=== PATIENT | female | born 1995 | race Caucasian/White ===

== ENCOUNTER 2017-05-27 17:10 | Emergency (ER) | payer OTHER ==
[~2017-05-27] VITALS: Wt 127.0 kg
[2017-05-27] MEDS ORDERED: [UNRECOGNIZED DRUG - CODE] (17:14)
[2017-05-27] MEDS ORDERED: CYCLOBENZAPRINE5 M3 PO (17:57)
== END 2017-05-27 17:41 | disposition home or self-care (01) ==
LOC: ED 17:10
DX: O26.891 Other specified pregnancy related conditions, first trimester (principal); R20.2 Paresthesia of skin; O99.331 Smoking (tobacco) complicating pregnancy, first trimester; F17.200 Nicotine dependence, unspecified, uncomplicated; Z3A.11 11 weeks gestation of pregnancy; Z79.899 Other long term (current) drug therapy